=== PATIENT | male | born 1965 | race Caucasian/White ===

== ENCOUNTER 2018-11-19 18:36 | Emergency (ER) | payer OTHER ==
--- OUTSIDE RECORDS SUMMARY | 2018-11-19 18:39 | XMS REPORT | Clinical Summary ---
:1965 Author Organization [facility] Address [address] [place] [address] Care Team Providers Name Role Phone Pcp, No Primary Care Provider Unavailable Allergies No Known Allergies Medications Medication Sig Dispensed Refills Start Date End Date Status atorvastatin (LIPITOR) Take 20 mg by 0 Active 20 MG tablet mouth daily. aspirin 81 MG chewable Take 1 tablet 30 tablet 0 06/13/2018 06/13/2019 Active tablet (81 mg total) by mouth daily. metoprolol (TOPROL-XL) Take 1 tablet 30 tablet 0 06/13/2018 06/13/2019 Active 25 MG 24 hr tablet (25 mg total) by mouth daily. Active Problems Problem Noted Date Abnormal stress test 06/13/2018 Encounters Date Type Specialty Care Team Description 06/13/2018 Surgery Jose Ward L CATH & CORONARY ANGIOS 06/13/2018 Hospital Encounter Jose Ward MD 06/12/2018 Orders Only Cardiology Jose Ward MD after 11/18/2017 Social History Tobacco Use Types Packs/Day Years Used Date Never Smoker Smokeless Tobacco: Current User Snuff Alcohol Use Drinks/Week oz/Week Comments Yes sometimes Sex Assigned at Date Recorded Not on file Job Start Date Occupation Industry Not on file Not on file Not on file Travel History Travel Start Travel End No recent travel history available. Last Filed Vital Signs Vital Sign Reading Time Taken Blood Pressure 115/77 06/13/2018 1:15 PM [employer] Pulse 60 06/13/2018 1:15 PM [employer] Temperature 36.4 C (97.6 F) 06/13/2018 5:51 AM [employer] Respiratory Rate 14 06/13/2018 1:15 PM [employer] Oxygen Saturation 94% 06/13/2018 9:51 AM [employer] Inhaled Oxygen Concentration - - Weight 102.6 kg (226 lb 4.8 oz) 06/13/2018 5:51 AM [employer] Height 175.3 cm (5' 9") 06/13/2018 5:51 AM [employer] Body Mass Index 33.42 06/13/2018 5:51 AM [employer] Plan of Treatment Not on file Procedures Procedure Name Priority Date/Time Associated Diagnosis Comments VASCULAR DIAGRAM -SCAN 07/24/2018 3:03 PM [employer] REPORT OF PROCEDURE - 07/03/2018 3:00 PM [employer] ENDOSCOPY SCAN VASCULAR DIAGRAM -SCAN 07/03/2018 3:00 PM [employer] CARDIAC CATH REPORT - 07/03/2018 3:00 PM [employer] SCAN L CATH & CORONARY 06/13/2018 7:30 AM [employer] Abnormal stress test ANGIOS Case Notes (1) CASE POP6 after 11/18/2017 Results VASCULAR DIAGRAM -SCAN (07/24/2018 3:03 PM [employer])Only the most recent of2 resultswithin the time period is included. Narrative Performed At EKG-SCANNED (07/03/2018 3:00 PM [employer]) Narrative Performed At CARDIAC CATH REPORT - SCAN (07/03/2018 3:00 PM [employer]) Narrative Performed At after 11/18/2017 Insurance Payer Benefit Plan / Group Subscriber ID Type Phone Address [employer] - [employer] [facility] PL[facility] xxxxxxxxxx HMO/POS (Home) [address] [place] [id number] Advance Directives For more information, please contact:[address] [phone] Code Status Date Activated Date Inactivated Comments Full Code 06/13/2018 6:02 AM This code status was determined by: Patient
--- NOTE | 2018-11-19 19:20 | RAD REPORT ---
EXAM DESCRIPTION: RAD - Hand Right 3 View - 11/19/2018 7:08 pm CLINICAL HISTORY: Right hand pain status post injury FINDINGS: No fracture or dislocation is seen. A radiopaque foreign body is not seen
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
== END 2018-11-19 19:53 | disposition home or self-care (01) ==
LOC: ER 18:36
DX: S61.431A Puncture wound without foreign body of right hand, initial encounter (principal); W45.8XXA Other foreign body or object entering through skin, initial encounter
CPT/HCPCS: 99283

== ENCOUNTER 2024-05-30 20:02 | Emergency (ER) | payer OTHER ==
[2024-05-30] MEDS ORDERED: ONDANSETRON 4 MG/2 ML VIAL ONE (20:38)
[2024-05-30] MEDS ORDERED: MORPHINE 4 MG/ML SYR ONE (20:39)
[2024-05-30] MEDS ORDERED: TDAP (DIPHTH,PERTUSS(ACELL),TET VAC) 0.5 ML VIAL IMVAC ONE (20:39)
[2024-05-30] MEDS ORDERED: SILVER SULFADIAZINE 1% 25 GM TOP ONE (20:39)
[2024-05-30] MEDS ORDERED: NA CHLORIDE 0.9% 1,000 ML ONE (20:39)
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
[2024-05-30 22:09] VITALS: TEMP 98.4
[2024-05-30 22:15] VITALS: BP 115/63; O2SAT 95
== END 2024-05-30 21:55 | disposition home or self-care (01) ==
LOC: ER 20:02
DX: T23.302A Burn of third degree of left hand, unspecified site, initial encounter (principal); T23.272A Burn of second degree of left wrist, initial encounter; T22.212A Burn of second degree of left forearm, initial encounter; T31.0 Burns involving less than 10% of body surface
CPT/HCPCS: 96361; 96375; 96372; 96374; 99285; J2405; J7030

== ENCOUNTER 2024-06-12 07:59 | Day surgery (SDC) | payer OTHER ==
[2024-06-10 09:35] LABS: Absolute Eosinophils 0.1 K/uL (0-0.5); Absolute Lymphocytes (CBC) 1.1 K/uL (0.7-4.9); Absolute Monocytes 0.6 K/uL (0.1-1.3); Absolute Neutrophil 3.7 K/uL (1.8-8.0); Basophils % 0.4 % (0-1.3); Eosinophils % 2.3 % (0-4.4); Hematocrit 40.9 % (39.6-49.0); Hemoglobin 13.6 g/dL (13.6-17.9); Lymphocytes % 20.1 % (15.3-44.8); MCH 32.2 pg (27.0-35.0); MCHC 33.4 g/dL (32.0-36.0); MCV 96.6 fL (80-100); MPV 7.5 fL (7.6-11.3); Monocytes % 10.5 % (3.3-12.3); Neutrophils % 66.7 % (41.7-73.7); Nucleated Red Blood Cells % 0.1 % (0-0); Platelets 218 thou/uL (152-406); RBC Red Blood Cell Count 4.23 M/uL (4.33-5.43); Red Cell Distribution Width 14.6 % (12.1-15.2)
[2024-06-10 09:44] LABS: Anion Gap 5.1 mEq/L (5.0-15.0); Potassium 4.1 mEq/L (3.5-5.1)
--- NOTE | 2024-06-11 11:52 | EKG ---
Test Date: 2024-06-10 Test Time: 10:11:21 Dried Yeast Supervisor: JEFFREY MEASUREMENT RESULTS: Intervals: Rate: 65 AL: 186 QRSD: 124 QT: 406 QTc: 422 Neligh: P: 68 AL: 186 QRS: 12 T: 0 INTERPRETIVE STATEMENTS: Normal sinus rhythm Nonspecific intraventricular conduction delay Borderline ECG No previous ECG available for comparison Electronically Signed On 06-11-24 11:50:48 SPANISH SPEAKING NANNY by Anirudh Hills
[2024-06-12] MEDS: Ringers Lactate 1,000 ML IV ONE (08:00)
[2024-06-12] MEDS ORDERED: MIDAZOLAM HCL 2 MG/2 ML INJ ONE (08:25)
[2024-06-12] MEDS ORDERED: ROCURONIUM 50 MG/5 ML VIAL IV ONE (08:25)
[2024-06-12] MEDS ORDERED: propofoL 200 MG/20 ML VIAL IV ONE (08:25)
[2024-06-12] MEDS ORDERED: LIDOCAINE 1% MPF 5 ML VIAL ONE (08:25)
[2024-06-12] MEDS ORDERED: FENTANYL CITR 100 MCG/2 ML ONE (08:25)
[2024-06-12] MEDS ORDERED: ONDANSETRON 4 MG/2 ML VIAL ONE (08:25)
[2024-06-12] MEDS: CEFAZOLIN SODIUM 2 GM/VIAL ONE (08:55)
[2024-06-12] MEDS: LIDOCAINE HCL/EPINEPHRINE 20 ML MDV ONE (08:55)
[2024-06-12] MEDS ORDERED: SUGAMMADEX SODIUM 200 MG/2 ML VIAL IV ONE (09:00)
[2024-06-12] MEDS ORDERED: HYDROMORPHONE HCL 1 MG/ML INJ ONE ×2 (09:00→10:43)
[2024-06-12] MEDS ORDERED: dexAMETHasone 10 MG/ML VIAL ONE (09:21)
[2024-06-12] MEDS ORDERED: KETOROLAC 30 MG/ML INJ ONE (09:56)
--- NOTE | 2024-06-12 10:17 | P.OP ---
Preoperative diagnosis: Ventral Incisional Hernia(s) Postoperative diagnosis: Ventral Incisional Hernia(s) Primary procedure: Laparoscopic Repair of Multiple Ventral Incisional Hernias with mesh Anesthesia: GETA + Local Estimated blood loss: <5cc Specimen: Hernia contents Findings: Multiple ~ 1.5cm ventral hernias in midline Complications: None Implants: 11.4cm Ventralite ST x2 mesh, Sorbafix x 90 tacks Transferred to: Recovery Room Condition: Good
[2024-06-12] MEDS: HYDROCODONE/APAP 10/325 TAB ONE (11:22)
[2024-06-12 14:25] VITALS: O2SAT 98
[2024-06-12 14:26] VITALS: BP 138/90; TEMP 97
--- NOTE | 2024-06-12 17:08 | OP ---
Date of Procedure: 06/12/2024 Surgeon: John Warren MD, Preoperative Diagnosis: Multiple ventral incisional hernias. Postoperative Diagnosis: Multiple ventral incisional hernias. Procedure Performed: Laparoscopic repair of multiple ventral incisional hernias with mesh. Anesthesia: General endotracheal plus local. Estimated Blood Loss: 5 cc. Specimen: Hernia contents. Findings: Multiple approximately 1-1.5 cm ventral midline incisional hernias. Complications: None. Implants: 11.[address] mesh with Echo positioning system x2 mesh utilized. SorbaFix absorbable fixation tacks times total of 90 tacks utilized. Disposition: The patient was transferred to recovery room in good condition. Procedure In Detail: After informed was obtained, that patient was brought to the operating room, pr epped in the usual fashion. After adequate anesthesia achieved, anesthetized an area of the left upp er quadrant down to subcutaneous tissue. 5 mm 0 degree optical trocar was introduced in the abdomen without incident or complication. Insufflation was obtained to 15 mmHg at this time. There was no i njury to vital structures upon entry into the abdomen. At this point, an additional 12 mm trocar garett ruth in the left lower abdomen. This was similarly anesthetized, sharply incised. A 12 mm trocar was placed under direct vision without evidence of complication. I then proceeded to use the LigaSure d evice to take down hernia contents from the umbilical region where an incarcerated adipose ventral in cisional hernia was appreciated. After the adipose tissue was returned to the normal anatomic positi on, I then found additional small less than or approximately 1 cm ventral hernia superior cranially t o the previous umbilical hernia. In addition, there was adipose tissue from the omentum trapped with in an epigastric incisional hernia from previous apparently laparoscopic trocar site. This was taken down as well using the LigaSure device. I then swept back all preperitoneal fat and omental attachm ents from the anterior abdominal wall to allow for an appropriate landing zone for mesh. At this poi nt, the holes were found to be swept clean completely. I then proceeded to deploy two 11.4 cm Bard V [address]ight ST mesh with Echo positioning system at the periumbilical region and the epigastric region using SorbaFix absorbable fixation tacks after securing the mesh in the central portion using the Technorati deployment system. A total of 90 absorbable fixation tacks were utilized to secure both pieces of mesh to the anterior bowel wall. Approximately 45 tacks were used per mesh with good apposition of the mesh. At this point, I closed the 12 mm trocar site under direct vision without complication using a Hans suture passer with an 0 Vicryl in an interrupted fashion. Good approximation of tissues. The abdomen was than desufflated under direct vision without evidence of complication. Remaining trocars were removed. All skin incisions were then copiously irrigated and closed with a 4-0 Monocryl in a running fashion Dermabond placed over top. The patient tolerated the procedure wit hout incident or complication and transferred to PACU in good condition. All counts were correct in the case. JIE/ALBINO Voice ID: [id number] Report ID: [id number]
== END 2024-06-12 13:09 | disposition home or self-care (01) ==
LOC: OR 07:59
PROVIDERS: ATTEND Surgery
PROC: 0WUF4JZ Supplement Abdominal Wall with Synthetic Substitute, Percutaneous Endoscopic Approach (ICD-10-PCS; principal; 2024-06-12 09:15)
DX: K43.2 Incisional hernia without obstruction or gangrene (principal)
CPT/HCPCS: 93005; 85025; 80048; 36415; 88302; 49591; J2704; J2003; J2250; J3010; J1100; J1171; J2405; J7120; C1781